=== PATIENT | male | born 1985 | race American Indian/Alaskan Native ===

== ENCOUNTER 2019-08-02 21:07 | Emergency (ER) | payer BC ==
[2019-08-02 23:12] VITALS: BP 110/60
== END 2019-08-02 21:50 | disposition left against medical advice (07) ==
LOC: ED 21:07
DX: M25.561 Pain in right knee (principal); Z53.21 Procedure and treatment not carried out due to patient leaving prior to being seen by health care provider

== ENCOUNTER 2020-11-17 11:21 | Emergency (ER) | payer BC, OTHER ==
[2020-11-17 11:57] VITALS: BP 118/65
--- NOTE | 2020-11-17 13:57 | Emergency Department Report ---
ED Extremity Problem HPI - General Chief complaint: Extremity Problem,Nontraumatic Stated complaint: R HIP PAIN Time Seen by Provider: 11/17/20 13:48 Source: patient Mode of arrival: Ambulatory Limitations: No Limitations - History of Present Illness Initial comments: Patient is a 35-year-old male presents emergency room with complaints of right hip pain that began yesterday. He denies any fall or injury. 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 He states his pain increases after he has been sitting for a long time and first gets up. He denies any leg swelling, numbness, weakness, rashes, redness, increased warmth, any other symptoms. No past medical history. No allergies to medications. - Related Data Previous Rx's Medication Instructions Recorded Last Taken Type Naproxen 375 mg PO BID PRN #20 tablet 11/17/20 Unknown Rx Allergies Allergy/AdvReac Type Severity Reaction Status Date / Time No Known Allergies Allergy Verified 11/17/20 11:57 ED Review of Systems ROS: Stated complaint: R HIP PAIN Other details as noted in HPI Comment: All other systems reviewed and negative ED Past Medical Hx - Past Medical History Previous Medical History?: No - Surgical History Past Surgical History?: Yes Additional Surgical History: right knee surgery, spleen removal - Social History Smoking Status: Never Smoker Substance Use Type: Alcohol, Marijuana - Medications Home Medications: Home Medications Medication Instructions Recorded Confirmed Last Taken Type Naproxen 375 mg PO BID PRN #20 tablet 11/17/20 Unknown Rx ED Physical Exam - General Limitations: No Limitations General appearance: alert, in no apparent distress - Head Head exam: Present: atraumatic, normocephalic - Eye Eye exam: Present: normal appearance - ENT ENT exam: Present: mucous membranes moist - Extremities Exam Extremities exam: Present: normal inspection, full ROM, normal capillary refill, other (no ttp of the RLE, FROM of the RLE, no edema, no calf ttp, neurovascularly intact, no skin changes). Absent: tenderness, pedal edema, joint swelling, calf tenderness - Neurological Exam Neurological exam: Present: alert, oriented X3, CN II-XII intact, normal gait. Absent: motor sensory deficit - Psychiatric Psychiatric exam: Present: normal affect, normal mood - Skin Skin exam: Present: warm, dry, intact ED Course Vital Signs 11/17/20 11:54 Temperature 98 F Pulse Rate 65 Respiratory 18 Rate Blood Pressure 118/65 [Left] O2 Sat by Pulse 100 Oximetry ED Medical Decision Making - Medical Decision Making Patient is a 35-year-old male presents emergency room with complaints of right hip pain that began yesterday. He denies any fall or injury. 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 He states his pain increases after he has been sitting for a long time and first gets up. He denies any leg swelling, numbness, weakness, rashes, redness, increased warmth, any other symptoms. No past medical history. No allergies to medications. Vitals are normal. On exam:no ttp of the RLE, FROM of the RLE, no edema, no calf ttp, neurovascularly intact, no skin changes. Symptoms could be related to tendinitis versus bursitis. Patient has had no trauma. He has no signs of cellulitis or septic joint. No clinical signs of DVT or acute arterial occlusion. Patient given prescription for medication. Advised patient Please take medication as prescribed as needed. May use ice 15 minutes at a time, rest, elevation of the leg, epsom salt bath. Follow-up with a primary care doctor. Follow-up with orthopedic doctor. Return to emergency room for any new or worse symptoms. Critical care attestation.: If time is entered above; I have spent that time in minutes in the direct care of this critically ill patient, excluding procedure time. ED Disposition Clinical Impression: Right hip pain Disposition: 01 HOME / SELF CARE / HOMELESS Is pt being admited?: No Does the pt Need Aspirin: No Condition: Stable Instructions: Hip Pain Additional Instructions: Please take medication as prescribed as needed. May use ice 15 minutes at a time, rest, elevation of the leg, epsom salt bath. Follow-up with a primary care doctor. Follow-up with orthopedic doctor. Return to emergency room for any new or worse symptoms. Prescriptions: Naproxen 375 mg PO BID PRN #20 tablet PRN Reason: pain Referrals: ALEJANDRO WHARTON MD [Staff Physician] - 3-5 Days ABIODUN CHAMPION MD [Staff Physician] - 3-5 Days [facility] [Provider Group] - 3-5 Days [facility] [Provider Group] - 3-5 Days Forms: Work/School Release Form(ED) Time of Disposition: 13:55 Print Language: GREENLANDIC
== END 2020-11-17 14:51 | disposition home or self-care (01) ==
LOC: ED 11:21
DX: M25.551 Pain in right hip (principal); F12.90 Cannabis use, unspecified, uncomplicated; Z79.899 Other long term (current) drug therapy; Z98.890 Other specified postprocedural states
CPT/HCPCS: 99281